=== PATIENT | female | born 1980 | race Caucasian/White ===

== ENCOUNTER 2016-11-07 15:51 | Emergency (ER) | payer MEDICAID ==
[~2016-11-07] VITALS: Ht 170.2 cm; Wt 154.0 kg
[~2016-11-07 15:51] MED LIST: AMOXICILLIN500 MG PO; AMOXICILLIN875 MG PO; CATAPRES-T0.1 MG/24 TD; FLEXERIL PO; FLEXERIL5 M1 PO; LOPID600 MG PO; LOVASTATIN10 M1 PO; MEDDOSEPAK PO; MUCINEX600 MG PO; NAPROSYN500 MG PO; NEURONTIN400 MG PO; NO HOME MEDS; TIZANIDINE HCL4 MG PO; TYLENOL 500MG TAB PO; ZOLOFT50 MG PO
[2016-11-07] MEDS ORDERED: B121000 MCG PO (16:48)
[2016-11-07] MEDS ORDERED: VITAMIN D2 PO (16:49)
[2016-11-07 18:52] LABS: URINE BILIRUBIN - DIPSTICK NEGATIVE (NEGATIVE); URINE BLOOD DIPSTICK SMALL (NEGATIVE); URINE CLARITY CLOUDY; URINE COLOR YELLOW; URINE GLUCOSE - DIPSTICK NEGATIVE (NEGATIVE); URINE KETONE NEGATIVE (NEGATIVE); URINE LEUK ESTERASE SMALL (Negative); URINE NITRITE - DIPSTICK NEGATIVE (Negative); URINE PROTEIN - DIPSTICK NEGATIVE (NEG-TRACE); URINE UROBILINOGEN - DIPSTICK 0.2 E.U./dL (0.2)
[2016-11-07 18:53] LABS: URINE AMORPH SEDIMENT FEW hpf (NONE-FEW); URINE BACTERIA FEW hpf; URINE MUCUS MODERATE hpf (NONE-FEW); URINE RBC 0-2 RBC/hpf (0-5); URINE SQUAMOUS EPITHELIAL CELL MANY EPI/hpf (0-FEW)
[2016-11-07 18:59] VITALS: BP 146/72
[2016-11-07] MEDS ORDERED: LORTAB 10-325 M1 TAB PO (19:05)
[2016-11-07] MEDS ORDERED: FLEXERIL PO (19:05)
== END 2016-11-07 19:18 | disposition home or self-care (01) | DRG 563 ==
LOC: ED 15:51
PROVIDERS: Emergency Medicine
DX: S39.012A Strain of muscle, fascia and tendon of lower back, initial encounter (principal); M51.37 Other intervertebral disc degeneration, lumbosacral region

== ENCOUNTER 2017-12-06 03:30 | Observation (INO) | payer MEDICAID ==
[~2017-12-06] VITALS: Ht 170.2 cm; Wt 171.0 kg
[~2017-12-06 03:30] MED LIST changes: +B121000 MCG PO; +LORTAB 10-325 M1 TAB PO; +VITAMIN D2 PO
[2017-12-06 04:06] LABS: HEMATOCRIT 42.6 % (37.0-47.0); HEMOGLOBIN 13.8 g/dl (12.0-16.0); IMMATURE GRANULOCYTES 0.4 % (0.0-1.0); MEAN CORPUSCULAR HGB 27.5 pG CALC (26.0-32.0); MEAN CORPUSCULAR HGB CONC 32.4 g/L CALC (32.0-36.0); NEUT# 5.77 thou/uL (2.00-7.15); RED BLOOD COUNT 5.01 mill/uL (4.20-5.60); RED CELL DISTRI WIDTH 14.8 % (11.5-15.5)
[2017-12-06 04:19] LABS: ALBUMIN 4.2 g/dL (3.2-5.0); ALKALINE PHOSPHATASE 62 u/l (38-126); ANION GAP 21 (6-22 (CALC)); BILIRUBIN, TOTAL 0.4 mg/dL (0.0-1.4); BUN 16 mg/dL (7-17); BUN/CREATININE RATIO 15 (12-20 (CALC)); CARBON DIOXIDE 21 mmol/l (22-30); CHLORIDE 105 mmol/l (95-108); GFR > 60 ML/MIN (>=60 (CALC)); GFR FOR AFR.AMER. > 60 ML/MIN (>=60 (CALC)); LIPASE 165 u/l (23-300); POTASSIUM 4.1 mmol/l (3.5-5.1); SGOT/AST 30 u/l (14-36); SGPT/ALT 61 u/l (9-52); SODIUM 143 mmol/l (137-146); TOTAL PROTEIN 7.6 g/dL (6.3-8.2)
[2017-12-06 04:25] LABS: ACT PARTIAL THROMBO TIME 22.8 SECONDS (20.0-32.5); INTERNATIONAL NORMALIZED RATIO 0.9 RATIO (0.7-1.3); PROTHROMBIN TIME 10.2 SECONDS (9.0-12.5)
[2017-12-06 04:31] LABS: MYOGLOBIN 86 ng/mL (0 - 62)
[2017-12-06 07:32] VITALS: BP 106/56
[2017-12-06 08:45] LABS: CHOLESTEROL HDL RATIO 4.7 (<4.4 (CALC))
[2017-12-06 12:10] VITALS: BP 97/44
[2017-12-06 16:20] VITALS: BP 149/94
== END 2017-12-06 17:44 | disposition home or self-care (01) | DRG 313 ==
LOC: ED 03:30 → ED-I 05:25 → ED 06:07 → MS2 06:08
PROVIDERS: Emergency Medicine; Nurse Practitioner Family; ADMIT Internal Medicine; ATTEND Internal Medicine
DX: R07.89 Other chest pain (principal); E66.01 Morbid (severe) obesity due to excess calories; Z68.43 Body mass index [BMI] 50.0-59.9, adult; F17.210 Nicotine dependence, cigarettes, uncomplicated; R11.2 Nausea with vomiting, unspecified
CPT/HCPCS: G0378

== ENCOUNTER 2018-02-15 18:42 | Emergency (ER) | payer SELFPAY ==
[~2018-02-15] VITALS: Ht 170.2 cm; Wt 169.4 kg
[2018-02-15] MEDS ORDERED: MEDDOSEPAK PO (19:19)
[2018-02-15] MEDS ORDERED: IBUPROFEN600 MG PO (19:19)
[2018-02-15] MEDS ORDERED: ORPHENADRINE100 MG PO (19:19)
[2018-02-15 19:35] VITALS: BP 139/84
== END 2018-02-15 19:35 | disposition home or self-care (01) | DRG 552 ==
LOC: ED 18:42
DX: M54.42 Lumbago with sciatica, left side (principal); F17.210 Nicotine dependence, cigarettes, uncomplicated